=== PATIENT | female | born 1940 | race Caucasian/White ===

== ENCOUNTER 2016-12-06 23:44 | Emergency (ER) | payer OTHER, BC ==
[~2016-12-06 23:44] MED LIST: ACIPHEX20 MG PO; ACYCLOVIR400 MG PO; CEL100 PO; D-BIOTIN10 MG PO; FORTEO250 MCG/ML; HYDROCHLOROTH12.5 M2 PO; METOPROLOL TART25 M1 PO; MIRAPEX0.25 MG PO; MULTIVITAMIN1 SGL PO; NATURAL PROGESTERONE PO; OMEGA-3 PO; VITAMIN B COMPLEX PO; WELLBUTRIN XL300 M1 PO; [UNRECOGNIZED DRUG - CODE] PO; [UNRECOGNIZED DRUG - REMARK] TOP
[2016-12-07 01:42] LABS: CALCIUM 9.2 mg/dL (8.5-10.1); CARBON DIOXIDE 28.3 mmol/L (21-32); CHLORIDE SERUM 106 mmol/L (98-107); CREATININE SERUM 0.8 mg/dL (0.6-1.0); GLUCOSE SERUM 104 mg/dL (74-106); POTASSIUM SERUM 4.4 mmol/L (3.5-5.1); SODIUM SERUM 141 mmol/L (136-145)
[2016-12-07 01:46] LABS: ALBUMIN 3.8 g/dL (3.4-5.0); ALKALINE PHOSPHATASE 30 U/L (46-116); ALT/SGPT 32 U/L (14-59); AST/SGOT 23 U/L (15-37); BILIRUBIN TOTAL 0.26 mg/dL (0.20-1.00); LIPASE 130 IU/L (73-393); TOTAL PROTEIN, SERUM 6.9 g/dL (6.4-8.2)
[2016-12-07 02:46] VITALS: BP 11/85
[2016-12-07 02:48] LABS: BASOPHIL % 0.4 % (0-2); PLATELET COUNT 247 x10^3mcL (130-400); RED CELL DISTRIBUTION WIDTH 13.9 % (11.5-14.5)
== END 2016-12-07 02:46 | disposition left against medical advice (07) ==
LOC: ED 23:44
PROVIDERS: Emergency Medicine
DX: R07.89 Other chest pain (principal); R06.02 Shortness of breath; L81.9 Disorder of pigmentation, unspecified; K21.9 Gastro-esophageal reflux disease without esophagitis; M19.90 Unspecified osteoarthritis, unspecified site; Z79.899 Other long term (current) drug therapy; Z86.79 Personal history of other diseases of the circulatory system; Z88.0 Allergy status to penicillin
CPT/HCPCS: 83880; Q0092

== ENCOUNTER → 2017-09-28 | Outpatient (CLI) | payer OTHER, BC | END | disposition home or self-care (01) | LOC: CT 12:59 | PROC: BW28ZZZ Computerized Tomography (CT Scan) of Head (ICD-10-PCS; principal; 2017-09-28) | DX: S09.90XA Unspecified injury of head, initial encounter (principal); X58.XXXA Exposure to other specified factors, initial encounter; Y92.9 Unspecified place or not applicable ==

== ENCOUNTER → 2017-10-23 | Outpatient (CLI) | payer OTHER, BC | END | disposition home or self-care (01) | LOC: US 11:31 | PROC: BQ48ZZZ Ultrasonography of Left Knee (ICD-10-PCS; principal; 2017-10-23) | DX: M25.562 Pain in left knee (principal) | CPT/HCPCS: Q0092 ==